=== PATIENT | male | born 1960 | race Caucasian/White ===

== ENCOUNTER 2021-03-19 06:37 | Outpatient (CLI) | payer BC, SELFPAY ==
--- NOTE | ~2021-03-19 | NM_ITS ---
EXAMINATION: ND Chaitanyatec infect ltd scan DATE: 03/20/2021 08:27 INDICATION: Left knee pain. TECHNIQUE: 13.1 mCi Tc-99m Ceretec was administered intravenously. Scintigrams of the knees were obt ained at 1.5 hours and 24 hours. COMPARISON: Bilateral knee radiographs 03/17/2021 FINDINGS: There are bilateral total knee arthroplasties. There is no abnormal increased activity to s uggest infection. IMPRESSION: 1. No abnormal increased activity to suggest infection. Reviewed, dictated and finalized at location A.
== END 2021-03-19 06:38 | disposition home or self-care (01) ==
LOC: ANHIMG 06:45
PROVIDERS: PCP Internal Medicine; Visit Provider Orthopaedic Surgery
DX: M25.561 Pain in right knee (principal); Z96.653 Presence of artificial knee joint, bilateral
CPT/HCPCS: 78800; A9521

== ENCOUNTER 2021-03-25 12:55 | Outpatient (CLI) | payer BC, SELFPAY ==
--- NOTE | ~2021-03-25 | US_ITS ---
EXAMINATION: US knee asp inj w image LT DATE: 03/25/2021 14:10 INDICATION: Left knee pain. TECHNIQUE: The procedure including the risks and benefits was discussed with the patient. Risks discu ssed included bleeding, infection and allergic reaction. The patient understood the risks and agreed to proceed. The skin at the lateral suprapatellar left knee was prepped and draped in usual sterile fashion. Anesthetic was administered with 1% lidocaine subcutaneously. A 22-gauge spinal needle was advanced under continuous ultrasound observation into the small fluid collection at the suprapatellar pouch. 10 mL of clear yellowish fluid was aspirated and sent to the lab for studies as ordered by e referring physician. The needle was removed and the entry site was cleaned and dressed. Post proc edure ultrasound demonstrated no hemorrhage. FINDINGS: Ultrasound images demonstrate aspiration needle within a small left knee joint effusion at the suprapatellar pouch. Incidentally noted is a 6.2 x 4.2 x 2.3 cm anechoic Tijerina's cyst at the left popliteal fossa. IMPRESSION: 1. Successful Ultrasound-guided left knee joint arthrocentesis. 2. Moderate-sized left Tijerina's cyst. Reviewed, dictated and finalized at location A.
[2021-03-25 15:54] LABS: Appearance Synovial Fluid Hazy (Clear); Color Synovial Fluid Yellow (Colorless); Lymphocytes Synovial Fluid 66 %; Neutrophils Synovial Fluid 0 % (0-25); Nucleated Cell Synovial Fluid 737 /uL (0-200); RBC Synovial Fluid 734 /uL (0-0); Source Synovial Fluid Synovial fluid
[2021-03-25 15:55] LABS: Monocytes Synovial Fluid 34 %
[2021-03-25 15:55] LABS: Crystals Synovial Fluid None Seen (None Seen)
== END 2021-03-25 12:56 | disposition home or self-care (01) ==
LOC: ANHIMG 12:58
PROVIDERS: PCP Internal Medicine; Visit Provider Orthopaedic Surgery
DX: G89.29 Other chronic pain (principal); M25.40 Effusion, unspecified joint; M25.462 Effusion, left knee; M25.562 Pain in left knee
CPT/HCPCS: 20611; 85060; 87070; 87075; 87205; 89051; 89060